=== PATIENT | male | born 1960 | race Caucasian/White ===

== ENCOUNTER 2023-09-14 20:24 | Emergency (ER) | payer SELFPAY ==
[~2023-09-14] VITALS: Ht 175.3 cm; Wt 73.3 kg
[2023-09-14 20:29] VITALS: BP 165/94; PULSE 100; RESP 16; TEMP 98; O2SAT 96
[2023-09-14] MEDS ORDERED: LABE100T8 PO (20:41)
== END 2023-09-14 21:09 | disposition home or self-care (01) ==
LOC: ER 20:26
DX: Z76.0 Encounter for issue of repeat prescription (principal); I10 Essential (primary) hypertension
CPT/HCPCS: 99281